=== PATIENT | male | born 1985 | race Asian ===

== ENCOUNTER 2017-09-09 02:59 | Emergency (ER) | payer OTHER ==
[~2017-09-09] VITALS: Ht 180.3 cm; Wt 77.1 kg
[2017-09-09 02:59] VITALS: BP_SYST 122
[2017-09-09 03:50] VITALS: BP_SYST 120
== END 2017-09-09 03:50 ==
LOC: SED 02:59
DX: Z02.89 Encounter for other administrative examinations (principal); V43.92XA Unspecified car occupant injured in collision with other type car in traffic accident, initial encounter; Y93.89 Activity, other specified; Y92.410 Unspecified street and highway as the place of occurrence of the external cause; Y99.8 Other external cause status